=== PATIENT | female | born 1935 | race Hispanic/Latino ===

== ENCOUNTER 2019-03-31 15:35 | Inpatient (IN) | payer MEDICARE | END 2019-04-04 17:35 | LOC: EDH 15:35 → EDHIP 17:19 → 3DH 19:37 | DX: G93.49 Other encephalopathy (principal); N39.0 Urinary tract infection, site not specified; E46 Unspecified protein-calorie malnutrition; F03.90 Unspecified dementia, unspecified severity, without behavioral disturbance, psychotic disturbance, mood disturbance, and anxiety ==

== ENCOUNTER 2019-05-25 17:51 | Emergency (ER) | payer MEDICARE ==
[~2019-05-25 17:51] MED LIST: CYAN250014 PO; DONE10TA43 PO; LORA10CA9 PO; LOSA100T58 PO; MEMA14CA5 PO; METO50TA9 PO; QUET25TA74 PO
[2019-05-25 18:41] LABS: BASOPHILS % (AUTO) 0.4 % (0.0-5.0); EOSINOPHILS % (AUTO) 2.3 % (0.0-8.0); HEMATOCRIT 29.7 % (36-48); LYMPHOCYTES % (AUTO) 21.4 % (21.0-51.0); MEAN CORPUSCULAR HEMOGLOBIN 32.3 pg (27.0-33.0); MEAN CORPUSCULAR HGB CONC 34.5 g/dL (32.0-36.0); MEAN CORPUSCULAR VOLUME 93.6 fL (79-99); MONOCYTES % (AUTO) 7.7 % (3.0-13.0); NEUTROPHILS % (AUTO) 68.2 % (40.0-77.0); NUCLEATED RED BLOOD CELLS 0.1 % (0.0-0.19); PLATELET COUNT (AUTO) 167 K/uL (130-400); RED BLOOD CELL COUNT(AUTO) 3.17 MIL/uL (4.00-5.50); RED CELL DISTRIBUTION WIDTH 16.7 % (11.0-15.5)
[2019-05-25 18:51] LABS: CREATININE 1.1 mg/dL (0.5-1.5); POTASSIUM 3.9 mmol/L (3.5-5.1)
[2019-05-25 18:54] LABS: INR 1.04 (0.85-1.15); PARTIAL THROMBOPLASTIN TIME 25.7 SEC (26.3-35.5); PROTHROMBIN TIME 10.9 SEC (9.6-11.6)
[2019-05-25 18:58] LABS: ALBUMIN 2.7 g/dL (3.5-5.0); APPEARANCE,URINE Cloudy (CLEAR); BILIRUBIN,TOTAL 0.3 mg/dL (0.2-1.0); BILIRUBIN,URINE Negative (NEGATIVE); COLOR,URINE Yellow (YELLOW); GLUCOSE, URINE (UA) Negative (NEGATIVE); KETONES,URINE Negative (NEGATIVE); LEUKOCYTE ESTERASE ,URINE Moderate (NEGATIVE); NITRATE,URINE Negative (NEGATIVE); OCCULT BLOOD,URINE Trace (NEGATIVE); PROTEIN,URINE Negative (NEGATIVE); TOTAL PROTEIN, SERUM 5.9 g/dL (6.0-8.3)
[2019-05-25 19:02] LABS: B-TYPE NATRIURETIC PEPTIDE 366 pg/mL (0-100)
[2019-05-25 19:12] LABS: BACTERIA,URINE Moderate /HPF (None Seen); MUCUS,URINE Few LPF (None Seen)
[2019-06-07] MEDS ORDERED: MEMA5TAB15 PO (00:53)
[2019-06-07] MEDS ORDERED: LOPE2CAP PO (00:53)
[2019-06-07] MEDS ORDERED: METOPROLOL ER PO (00:53)
[2019-06-09] MEDS ORDERED: CEFD300C3 PO (12:41)
== END 2019-05-25 20:26 | disposition home or self-care (01) ==
LOC: EDH 17:51
DX: R14.0 Abdominal distension (gaseous) (principal); R60.9 Edema, unspecified; I10 Essential (primary) hypertension; F03.90 Unspecified dementia, unspecified severity, without behavioral disturbance, psychotic disturbance, mood disturbance, and anxiety; Z95.1 Presence of aortocoronary bypass graft; Z98.890 Other specified postprocedural states
CPT/HCPCS: 36415; 71045; 74176; 80053; 81001; 83880; 84484; 85025; 85610; 85730; 87088; 93005

== ENCOUNTER 2019-10-14 10:57 | Emergency (ER) | payer MEDICARE ==
[~2019-10-14 10:57] MED LIST changes: -LORA10CA9 PO; +MEGE400O4 PO; -MEMA14CA5 PO; +MEMA5TAB42 PO; -METO50TA9 PO; +METOPROLOL ER PO; +MONT10TA26 PO
== END 2019-10-14 13:25 | disposition home or self-care (01) ==
LOC: EDH 10:57
DX: S51.812A Laceration without foreign body of left forearm, initial encounter (principal); I10 Essential (primary) hypertension; Z95.0 Presence of cardiac pacemaker; Z98.890 Other specified postprocedural states; W18.39XA Other fall on same level, initial encounter; Y93.01 Activity, walking, marching and hiking; Y92.89 Other specified places as the place of occurrence of the external cause; Y99.8 Other external cause status
CPT/HCPCS: 70450; 72125

== ENCOUNTER 2020-06-01 12:48 | Inpatient (IN) | payer MEDICARE ==
[~2020-06-01] VITALS: Ht 180.3 cm; Wt 44.5 kg
[~2020-06-01 12:48] MED LIST changes: -MONT10TA26 PO; +MONT10TA96 PO
[2020-06-01] MEDS ORDERED: ONDANSETRON HCL 4 MG/2 ML VIAL IVP PRN (15:15)
[2020-06-01] MEDS ORDERED: ACETAMINOPHEN 325 MG TAB PO PRN ×2 (15:15)
[2020-06-01] MEDS ORDERED: MORPHINE SULFATE 2 MG/ML 1ML SYG IVP PRN (15:15)
[2020-06-01] MEDS ORDERED: ACETAMINOPHEN-CODEINE 300/30MG TAB PO PRN (15:15)
[2020-06-01] MEDS: SODIUM CHLORIDE 0.9% 1000ML 1,000 ML IV SCH ×2 (15:15→22:41)
[2020-06-01 15:27] LABS: BASOPHILS % (AUTO) 0.6 % (0.0-5.0); EOSINOPHILS % (AUTO) 1.2 % (0.0-8.0); HEMATOCRIT 39.3 % (36-48); LYMPHOCYTES % (AUTO) 24.1 % (21.0-51.0); MEAN CORPUSCULAR HEMOGLOBIN 30.3 pg (27.0-33.0); MEAN CORPUSCULAR HGB CONC 33.6 g/dL (32.0-36.0); MEAN CORPUSCULAR VOLUME 90.3 fL (79-99); MONOCYTES % (AUTO) 8.9 % (3.0-13.0); NEUTROPHILS % (AUTO) 64.7 % (40.0-77.0); PLATELET COUNT (AUTO) 198 K/uL (130-400); RED BLOOD CELL COUNT(AUTO) 4.35 MIL/uL (4.00-5.50); RED CELL DISTRIBUTION WIDTH 13.2 % (11.0-15.5); WHITE BLOOD COUNT (AUTO) 8.4 K/uL (4.8-10.8)
[2020-06-01] MEDS ORDERED: HEPARIN SODIUM 5000UNIT/ML 1ML VIAL SQ PRN (15:30)
[2020-06-01] MEDS ORDERED: CLOPIDOGREL BISULFATE 75 MG TAB PO SCH (15:30)
[2020-06-01] MEDS ORDERED: ASPIRIN 325 MG TABLET PO SCH (15:30)
[2020-06-01] MEDS ORDERED: HEPARIN 25000 UNITS/250 ML D5W 250 ML IV SCH (15:30)
[2020-06-01 15:39] LABS: CREATININE 1.1 mg/dL (0.5-1.5); POTASSIUM 4.3 mmol/L (3.5-5.1)
[2020-06-01 15:43] LABS: ALBUMIN 3.6 g/dL (3.5-5.0); BILIRUBIN,TOTAL 0.4 mg/dL (0.2-1.0); TOTAL PROTEIN, SERUM 7.4 g/dL (6.0-8.3)
[2020-06-01 16:20] LABS: INR 0.99 (0.85-1.15); PARTIAL THROMBOPLASTIN TIME 27.8 SEC (26.3-35.5); PROTHROMBIN TIME 10.7 SEC (9.6-11.6)
[2020-06-01] MEDS ORDERED: ASPIRIN 325 MG TABLET ONE (16:25)
[2020-06-01] MEDS ORDERED: SODIUM CHLORIDE 0.9% 1000ML 1,000 ML IV ONE (16:25)
[2020-06-01] MEDS ORDERED: CLOPIDOGREL BISULFATE 75 MG TAB ONE (16:25)
[2020-06-01] MEDS ORDERED: HEPARIN 25000 UNITS/250 ML D5W 250 ML IV ONE (16:26)
[2020-06-01] MEDS ORDERED: HEPARIN SODIUM 5000UNIT/ML 1ML VIAL ONE (16:50)
[2020-06-01] MEDS ORDERED: ONDANSETRON HCL 4 MG/2 ML VIAL ONE (21:06)
[2020-06-01] MEDS ORDERED: MORPHINE SULFATE 2 MG/ML 1ML SYG ONE (21:07)
[2020-06-01 22:25] VITALS: BP 185/99
[2020-06-01 23:25] LABS: INR 1.02 (0.85-1.15)
[2020-06-01] MEDS ORDERED: LEVO25TA54 PO (23:44)
[2020-06-01] MEDS ORDERED: MELA1TAB21 PO (23:44)
[2020-06-01] MEDS ORDERED: MEMA10TA55 PO (23:44)
[2020-06-02] VITALS (7 sets, daily range): BP systolic 139–181; BP diastolic 67–99
[2020-06-02 05:51] LABS: INR 1.02 (0.85-1.15); PARTIAL THROMBOPLASTIN TIME 64.4 SEC (26.3-35.5)
[2020-06-02] MEDS ORDERED: HYDRALAZINE HCL 25 MG TABLET PO SCH (08:00)
[2020-06-02] MEDS ORDERED: ENOXAPARIN SODIUM 30 MG/0.3 ML SQ SCH (09:00)
[2020-06-02] MEDS: FAMOTIDINE 20MG TAB 20 MG TAB PO SCH (09:38)
[2020-06-02] MEDS: ASPIRIN 81MG TAB.CHEW PO SCH (09:39)
[2020-06-02] MEDS: CLOPIDOGREL BISULFATE 75 MG TAB PO SCH (09:39)
[2020-06-02] MEDS: SODIUM CHLORIDE 0.9% 1000ML 1,000 ML IV SCH (11:34)
[2020-06-02 11:45] LABS: INR 0.99 (0.85-1.15); PARTIAL THROMBOPLASTIN TIME 63.9 SEC (26.3-35.5); PROTHROMBIN TIME 10.7 SEC (9.6-11.6)
[2020-06-02 17:06] LABS: INR 0.98 (0.85-1.15); PARTIAL THROMBOPLASTIN TIME 59.2 SEC (26.3-35.5); PROTHROMBIN TIME 10.6 SEC (9.6-11.6)
[2020-06-02] MEDS: DONEPEZIL HCL 5 MG TAB PO SCH (19:37)
[2020-06-02] MEDS ORDERED: METOPROLOL TARTRATE 1 MG/ML 5ML VIAL IV STA (20:22)
[2020-06-02] MEDS ORDERED: NON-FORMULARY MEDICATION 1 EACH (Donepezil HCl 10 MG) PO SCH (21:00)
[2020-06-03] VITALS (8 sets, daily range): BP systolic 140–200; BP diastolic 78–98
[2020-06-03] MEDS: LEVOTHYROXINE 25 MCG TABLET PO SCH (05:33)
[2020-06-03 05:44] LABS: BASOPHILS % (AUTO) 0.8 % (0.0-5.0); EOSINOPHILS % (AUTO) 1.4 % (0.0-8.0); HEMATOCRIT 37.4 % (36-48); LYMPHOCYTES % (AUTO) 21.1 % (21.0-51.0); MEAN CORPUSCULAR HEMOGLOBIN 30.4 pg (27.0-33.0); MEAN CORPUSCULAR VOLUME 89.5 fL (79-99); MONOCYTES % (AUTO) 8.9 % (3.0-13.0); NEUTROPHILS % (AUTO) 67.4 % (40.0-77.0); PLATELET COUNT (AUTO) 204 K/uL (130-400); RED BLOOD CELL COUNT(AUTO) 4.18 MIL/uL (4.00-5.50); WHITE BLOOD COUNT (AUTO) 7.4 K/uL (4.8-10.8)
[2020-06-03 06:13] LABS: CREATININE 0.8 mg/dL (0.5-1.5); POTASSIUM 3.5 mmol/L (3.5-5.1)
[2020-06-03] MEDS ORDERED: NON-FORMULARY MEDICATION 1 EACH (Memantine HCl 10 MG) PO SCH (09:00)
[2020-06-03] MEDS: SODIUM CHLORIDE 0.9% 1000ML 1,000 ML IV SCH ×2 (09:47→19:24)
[2020-06-03] MEDS: METOPROLOL TARTRATE 25 MG TAB PO SCH ×2 (09:48→20:20)
[2020-06-03] MEDS: APIXABAN 2.5 MG TABLET PO SCH ×2 (09:48→20:20)
[2020-06-03] MEDS: MEMANTINE HCL 5 MG TABLET PO SCH (09:48)
[2020-06-03] MEDS: ASPIRIN 81MG TAB.CHEW PO SCH (09:48)
[2020-06-03] MEDS: FAMOTIDINE 20MG TAB 20 MG TAB PO SCH (09:48)
[2020-06-03] MEDS: MONTELUKAST SODIUM 10 MG TAB PO SCH (09:49)
[2020-06-03] MEDS: CLOPIDOGREL BISULFATE 75 MG TAB PO SCH (09:49)
[2020-06-03] MEDS: DONEPEZIL HCL 5 MG TAB PO SCH (20:20)
[2020-06-03] MEDS ORDERED: MELA10TA2 PO (22:31)
[2020-06-04] VITALS (7 sets, daily range): BP systolic 147–181; BP diastolic 77–94
[2020-06-04] MEDS ORDERED: LABETALOL 20 MG/4 ML DISP.SYRIN IV ONE (00:11)
[2020-06-04] MEDS ORDERED: LABETALOL 20 MG/4 ML DISP.SYRIN IV SCH (00:15)
[2020-06-04] MEDS: SODIUM CHLORIDE 0.9% 1000ML 1,000 ML IV SCH ×2 (05:09→14:23)
[2020-06-04] MEDS: LEVOTHYROXINE 25 MCG TABLET PO SCH (05:10)
[2020-06-04 05:32] LABS: BASOPHILS % (AUTO) 0.5 % (0.0-5.0); EOSINOPHILS % (AUTO) 1.3 % (0.0-8.0); HEMATOCRIT 36.8 % (36-48); LYMPHOCYTES % (AUTO) 16.4 % (21.0-51.0); MEAN CORPUSCULAR HEMOGLOBIN 30.6 pg (27.0-33.0); MEAN CORPUSCULAR HGB CONC 34.2 g/dL (32.0-36.0); MEAN CORPUSCULAR VOLUME 89.3 fL (79-99); MONOCYTES % (AUTO) 8.3 % (3.0-13.0); PLATELET COUNT (AUTO) 196 K/uL (130-400); RED BLOOD CELL COUNT(AUTO) 4.12 MIL/uL (4.00-5.50); RED CELL DISTRIBUTION WIDTH 13.1 % (11.0-15.5); WHITE BLOOD COUNT (AUTO) 8.2 K/uL (4.8-10.8)
[2020-06-04 05:58] LABS: CREATININE 0.8 mg/dL (0.5-1.5)
[2020-06-04] MEDS ORDERED: POTASSIUM CHLORIDE 10% ELIXIR 20 MEQ/15 ML UDCUP PO SCH (08:00)
[2020-06-04] MEDS: MONTELUKAST SODIUM 10 MG TAB PO SCH (08:20)
[2020-06-04] MEDS: MEMANTINE HCL 5 MG TABLET PO SCH (08:21)
[2020-06-04] MEDS: ASPIRIN 81MG TAB.CHEW PO SCH (08:21)
[2020-06-04] MEDS: FAMOTIDINE 20MG TAB 20 MG TAB PO SCH (08:21)
[2020-06-04] MEDS: APIXABAN 2.5 MG TABLET PO SCH ×2 (08:21→21:01)
[2020-06-04] MEDS: CLOPIDOGREL BISULFATE 75 MG TAB PO SCH (08:21)
[2020-06-04] MEDS: METOPROLOL TARTRATE 25 MG TAB PO SCH ×2 (08:22→21:02)
[2020-06-04] MEDS ORDERED: AMLODIPINE BESYLATE 5 MG TAB PO SCH (09:00)
[2020-06-04] MEDS ORDERED: MELATONIN 10 MG PO SCH (21:00)
[2020-06-04] MEDS ORDERED: NON-FORMULARY MEDICATION 1 EACH PO SCH (21:00)
[2020-06-04] MEDS: DONEPEZIL HCL 5 MG TAB PO SCH (21:02)
[2020-06-05 00:03] VITALS: BP 165/79
[2020-06-05] MEDS: SODIUM CHLORIDE 0.9% 1000ML 1,000 ML IV SCH ×2 (00:11→08:52)
[2020-06-05 04:03] VITALS: BP 188/92
[2020-06-05 05:49] LABS: BASOPHILS % (AUTO) 0.5 % (0.0-5.0); EOSINOPHILS % (AUTO) 2.7 % (0.0-8.0); HEMATOCRIT 37.3 % (36-48); LYMPHOCYTES % (AUTO) 25.8 % (21.0-51.0); MEAN CORPUSCULAR HEMOGLOBIN 30.6 pg (27.0-33.0); MEAN CORPUSCULAR HGB CONC 34.9 g/dL (32.0-36.0); MEAN CORPUSCULAR VOLUME 87.8 fL (79-99); MONOCYTES % (AUTO) 8.3 % (3.0-13.0); NEUTROPHILS % (AUTO) 62.3 % (40.0-77.0); PLATELET COUNT (AUTO) 235 K/uL (130-400); RED BLOOD CELL COUNT(AUTO) 4.25 MIL/uL (4.00-5.50); WHITE BLOOD COUNT (AUTO) 8.5 K/uL (4.8-10.8)
[2020-06-05 06:15] LABS: CREATININE 0.7 mg/dL (0.5-1.5); POTASSIUM 3.4 mmol/L (3.5-5.1)
[2020-06-05] MEDS: LEVOTHYROXINE 25 MCG TABLET PO SCH (06:34)
[2020-06-05 08:20] VITALS: BP 172/92
[2020-06-05] MEDS: MONTELUKAST SODIUM 10 MG TAB PO SCH (08:44)
[2020-06-05] MEDS: ASPIRIN 81MG TAB.CHEW PO SCH (08:45)
[2020-06-05] MEDS: CLOPIDOGREL BISULFATE 75 MG TAB PO SCH (08:45)
[2020-06-05] MEDS: FAMOTIDINE 20MG TAB 20 MG TAB PO SCH (08:45)
[2020-06-05] MEDS: APIXABAN 2.5 MG TABLET PO SCH (08:45)
[2020-06-05] MEDS: MEMANTINE HCL 5 MG TABLET PO SCH (08:45)
[2020-06-05] MEDS: METOPROLOL TARTRATE 25 MG TAB PO SCH (08:46)
[2020-06-05] MEDS ORDERED: AMLODIPINE BESYLATE 5 MG TAB PO SCH (09:00)
[2020-06-05 11:33] VITALS: BP 160/87
== END 2020-06-05 15:02 | disposition home or self-care (01) | DRG 300 ==
LOC: EDH 12:48 → EDHIP 15:09 → 4AH 22:39
PROVIDERS: ADMIT Hospitalist; ATTEND Hospitalist
DX: I70.221 Atherosclerosis of native arteries of extremities with rest pain, right leg (principal); D68.59 Other primary thrombophilia; I82.811 Embolism and thrombosis of superficial veins of right lower extremity; I70.92 Chronic total occlusion of artery of the extremities; I12.9 Hypertensive chronic kidney disease with stage 1 through stage 4 chronic kidney disease, or unspecified chronic kidney disease; N18.30 Chronic kidney disease, stage 3 unspecified; I25.10 Atherosclerotic heart disease of native coronary artery without angina pectoris; I49.5 Sick sinus syndrome; I48.0 Paroxysmal atrial fibrillation; I45.9 Conduction disorder, unspecified; I16.0 Hypertensive urgency; R26.2 Difficulty in walking, not elsewhere classified; R74.8 Abnormal levels of other serum enzymes; F03.90 Unspecified dementia, unspecified severity, without behavioral disturbance, psychotic disturbance, mood disturbance, and anxiety; E78.5 Hyperlipidemia, unspecified; Z87.440 Personal history of urinary (tract) infections; Z95.0 Presence of cardiac pacemaker; Z95.5 Presence of coronary angioplasty implant and graft
CPT/HCPCS: 36415; 80048; 80053; 82550; 85025; 85610; 85730; 93005; 93926; 93971; G0378; J1644; J2405; J7030

== ENCOUNTER → 2020-07-20 | Outpatient (CLI) | payer MEDICARE ==
[~2020-07-20] MED LIST changes: +LEVO25TA54 PO; -LOSA100T58 PO; -MEGE400O4 PO; +MELA10TA2 PO; +MEMA10TA55 PO; -MEMA5TAB42 PO; -QUET25TA74 PO
== END | disposition home or self-care (01) ==
LOC: RAH 08:52
PROVIDERS: ATTEND Internal Medicine Gastroenterology
DX: K21.9 Gastro-esophageal reflux disease without esophagitis (principal); K57.10 Diverticulosis of small intestine without perforation or abscess without bleeding
CPT/HCPCS: 74240

== ENCOUNTER 2020-07-22 19:39 | Emergency (ER) | payer MEDICARE ==
[~2020-07-22 19:39] MED LIST changes: +MONT10TA32 PO; -MONT10TA96 PO
[2020-07-22 20:14] LABS: BASOPHILS % (AUTO) 0.4 % (0.0-5.0); EOSINOPHILS % (AUTO) 2.1 % (0.0-8.0); HEMATOCRIT 35.3 % (36-48); LYMPHOCYTES % (AUTO) 19.3 % (21.0-51.0); MEAN CORPUSCULAR HEMOGLOBIN 30.5 pg (27.0-33.0); MEAN CORPUSCULAR HGB CONC 35.1 g/dL (32.0-36.0); MEAN CORPUSCULAR VOLUME 86.7 fL (79-99); MONOCYTES % (AUTO) 9.1 % (3.0-13.0); NEUTROPHILS % (AUTO) 68.8 % (40.0-77.0); PLATELET COUNT (AUTO) 323 K/uL (130-400); RED BLOOD CELL COUNT(AUTO) 4.07 MIL/uL (4.00-5.50); RED CELL DISTRIBUTION WIDTH 13.7 % (11.0-15.5)
[2020-07-22 20:41] LABS: INR 1.24 (0.85-1.15)
[2020-07-22 20:42] LABS: PARTIAL THROMBOPLASTIN TIME 33.3 SEC (26.3-35.5)
[2020-07-22] MEDS ORDERED: ZOSYN 3.375GM+NS 50ML 50 ML IV ONE (20:43)
[2020-07-22 20:44] LABS: B-TYPE NATRIURETIC PEPTIDE 343 pg/mL (0-100)
[2020-07-22 20:45] LABS: ALBUMIN 3.2 g/dL (3.5-5.0); BILIRUBIN,TOTAL 0.3 mg/dL (0.2-1.0); CREATININE 0.9 mg/dL (0.5-1.5); CRP QUANTITATIVE 17.6 mg/L (0.00-9.0); TOTAL PROTEIN, SERUM 7.1 g/dL (6.0-8.3)
[2020-07-22 20:46] LABS: POTASSIUM 2.8 mmol/L (3.5-5.1)
[2020-07-22] MEDS ORDERED: POTASSIUM BICARB/CIT AC 25 MEQ TABLET.EFF ONE (21:20)
[2020-07-22] MEDS ORDERED: ASPIRIN 325 MG TABLET ONE (21:20)
[2020-07-22] MEDS ORDERED: LEVOFLOXACIN 500 MG/D5W 100 ML 100 ML ONE (21:21)
[2020-07-22 21:23] LABS: ERYTHROCYTE SEDIMENTATION RATE 40 MM/HR (0-30)
[2020-07-22] MEDS ORDERED: NITROGLYCERIN 1GM/1 INCH PACKET TD ONE (21:23)
[2020-07-23] MEDS ORDERED: SULFAMETHOX-TMP DS 800/160 TAB ONE (00:14)
== END 2020-07-23 01:28 | disposition home or self-care (01) ==
LOC: EDH 19:39
DX: E87.6 Hypokalemia (principal); F02.81 Dementia in other diseases classified elsewhere, unspecified severity, with behavioral disturbance; I73.9 Peripheral vascular disease, unspecified; I25.10 Atherosclerotic heart disease of native coronary artery without angina pectoris; I10 Essential (primary) hypertension
CPT/HCPCS: 36415 ×2; 71045; 73630; 80053; 82550; 83605 ×2; 83880; 84484 ×2; 85025; 85610; 85651; 85730; 86140; 87040 ×2; 93005; 96365; 96366; 96368; 99291; J1956; J2543

== ENCOUNTER 2020-08-13 14:09 | Emergency (ER) | payer MEDICARE ==
[2020-08-13] MEDS ORDERED: OCTYL 2-CYANOACRYLATE 1 EACH TP ONE (14:52)
== END 2020-08-13 17:10 | disposition home or self-care (01) ==
LOC: EDH 14:09
DX: S02.2XXA Fracture of nasal bones, initial encounter for closed fracture (principal); S01.21XA Laceration without foreign body of nose, initial encounter; F03.90 Unspecified dementia, unspecified severity, without behavioral disturbance, psychotic disturbance, mood disturbance, and anxiety; Z20.822 Contact with and (suspected) exposure to COVID-19; I10 Essential (primary) hypertension; I25.10 Atherosclerotic heart disease of native coronary artery without angina pectoris; Z95.0 Presence of cardiac pacemaker; W18.39XA Other fall on same level, initial encounter; Y93.89 Activity, other specified; Y92.89 Other specified places as the place of occurrence of the external cause; Y99.8 Other external cause status
CPT/HCPCS: 12011; 70450; 70486; 72125; 87426